=== PATIENT | female | born 1965 | race Caucasian/White ===

== ENCOUNTER 2020-12-26 00:54 | Observation (INO) ==
[2020-12-26] MEDS ORDERED: dilTIAZem HCl 5 MG/ML 5 ML VIAL IV STA ×2 (01:14→01:17)
[2020-12-26] MEDS ORDERED: dilTIAZem HCl 5 MG/ML 5 ML VIAL IV ONE (01:16)
--- NOTE | 2020-12-26 01:23 | Emergency Department Note ---
History of Present Illness General Chief complaint: Arrhythmia/Palpitations Stated complaint: IRREGULAR HEARTBEAT Time Seen by Provider: 12/26/20 01:09 Source: patient History of Present Illness Provider complaint: Palpitation Onset (ago): hour(s) Location: chest Pain Consistency: + constant Quality: + other (Rapid heartbeat) Relieved By: + none Associated symptoms: no chest pain, no cough, no fever/chills, no nausea/vomiting and no shortness of breath This is a 55-year-old female with a prior history of breast cancer presenting with palpitations starting approximately 1215 tonight. The patient states that she went to bed about 11 PM and woke up with her heart racing. She denies ever having this in the past. She has no associated chest discomfort or pain or shortness of breath or lightheadedness. She does state that she met with her old college friends and recently drank more than she usually had but no more etienne n 3 or 4 drinks. She did have half a beer today. She did drive from [facility] about 6 hours 3 days ago but denies any leg swelling or pain. She has had no history of PE or DVT. She did take stops when she was driving. She does have a history of hypothyroidism and takes thyroxine. She denies any fever, cough or cold symptoms, abdominal pain, vomiting, diarrhea or urinary symptoms. Home Medications Medication Instructions Recorded Confirmed Type thyroid (pork) [[place] Thyroid] 30 mg PO DAILY 12/26/20 12/26/20 History Allergies Allergy/AdvReac Type Severity Reaction Status Date / Time Iodinated Contrast Media Allergy Swelling Verified 12/26/20 01:57 of Lip/Tongue/Throat shellfish derived Allergy Swelling Verified 12/26/20 01:56 of Lip/Tongue/Throat Past Med/Surg History Medical History Breast cancer Hypothyroidism Social History Smoking Status: Never smoker Preferred Language: Wolof Feels Safe at Home: Yes Review of Systems See HPI for pertinent positives & negatives. and A total of 10 systems reviewed and were otherwise negative Physical Exam Vital Signs Vital Signs - 24 hr 12/26/20 00:58 12/26/20 01:13 12/26/20 01:34 Temperature 36.6 C Temperature Source Temporal Artery Scan Pulse Rate 116 H 100 H 109 H Pulse Rate from SpO2 Sensor 95 H 104 H Respiratory Rate 18 10 L 13 Respiratory Effort / Characteristics Non-Labored Respiratory Depth Normal Blood Pressure 134/84 135/107 H Blood Pressure Mean 100 116 Pulse Oximetry 98 99 99 Oxygen Delivery Method Room Air Sepsis Recent Fever Within 48 Hours No Sepsis New/Unexplained Change in Mental Status No Sepsis Action Taken by Nursing No Action Required 12/26/20 01:45 12/26/20 01:46 Temperature Temperature Source Pulse Rate 119 H 116 H Pulse Rate from SpO2 Sensor 107 H 112 H Respiratory Rate 20 21 Respiratory Effort / Characteristics Respiratory Depth Blood Pressure 118/90 Blood Pressure Mean 99 Pulse Oximetry 99 98 Oxygen Delivery Method Sepsis Recent Fever Within 48 Hours Sepsis New/Unexplained Change in Mental Status Sepsis Action Taken by Nursing Constitutional: Vital signs reviewed. Eyes: Pupils are equal round reactive to light. Conjunctiva are noninjected. ENT: Pharynx is clear without erythema or exudate. Mucous membranes are moist. Neck supple without meningeal signs. Respiratory: Clear to auscultation bilaterally. Breath sounds are equal bilaterally. Cardiovascular: Tachycardic. Irregularly irregular rhythm. Heart rate is 138. GI: Soft, nondistended and nontender. Bowel sounds are present. Musculoskeletal: No peripheral edema. No lower extremity tenderness. Integumentary: No cyanosis. or jaundice. Neurological: The patient is awake and alert. No focal deficits. Psychiatric: Anxious. Course Administered Medications Discontinued Medications Diltiazem HCl (Diltiazem Hcl 5 Mg/Ml 5 Ml Vial) 10 mg IV NOW STA Stop: 12/26/20 01:15 Last Admin: 12/26/20 01:18 Dose: 10 mg Documented by: [id number] Cosigned by: [id number] Diltiazem HCl (Diltiazem Hcl 5 Mg/Ml 5 Ml Vial) Confirm Administered Dose 25 mg IV .STK-MED ONE Stop: 12/26/20 01:17 Last Admin: 12/26/20 01:18 Dose: Not Given Documented by: [id number] Diltiazem HCl (Diltiazem Hcl 5 Mg/Ml 5 Ml Vial) 10 mg IV NOW STA Stop: 12/26/20 01:18 Last Admin: 12/26/20 01:23 Dose: Not Given Documented by: [id number] Medical Decision Making Differential Diagnosis Holiday heart, dysrhythmia, atrial fibrillation with RVR, SVT, metabolic derangement Medical Records Attestation: I reviewed the patient's medical records. I did perform a limited focused review of portions of the patient's old chart on the electronic medical record. The patient has had no prior pertinent visits to this hospital. Home Medications Current Medication List: was personally reviewed by me Laboratory Data Attestation: I reviewed the patient's lab results. Result diagrams: 12/26/20 01:11 12/26/20 01:11 Lab Results 12/26/20 12/26/20 12/26/20 Range/Units 01:11 01:11 01:11 WBC 6.79 (4.8-10.8) K/uL RBC 4.55 (4.2-5.4) M/uL Hgb 14.7 (12.0-16.0) g/dL Hct 43.4 (37-47) % MCV 95.4 (80-100) fL MCH 32.3 (25-34) pg MCHC 33.9 (32-36) g/dL RDW Std Deviation 47.8 H (36.4-46.3) fL RDW Coeff of Jewel 13.8 (11.5-14.5) % Plt Count 281 (130-400) K/uL MPV 10.2 (7.4-10.4) fL Immature Gran % (Auto) 0.1 % Neut % (Auto) 38.6 % Lymph % (Auto) 44.8 % Mcduffie % (Auto) 10.9 % Eos % (Auto) 4.9 % Baso % (Auto) 0.7 % Neut # (Auto) 2.62 (1.4-6.5) K/uL Lymph # (Auto) 3.04 (1.2-3.4) K/uL Mcduffie # (Auto) 0.74 H (0.11-0.59) K/uL Eos # (Auto) 0.33 (0-0.5) K/uL Baso # (Auto) 0.05 (0-0.2) K/uL Immature Gran # (Auto) 0.01 (0.00-0.02) K/uL PT (9.0-12.0) Seconds INR (0.9-1.1) APTT (21.0-31.0) Seconds PTT Ratio D-Dimer Cancelled Sodium 142 (136-145) mmol/L Potassium 3.7 (3.5-5.1) mmol/L Chloride 107 (98-107) mmol/L Carbon Dioxide 31 (21-32) mmol/L Anion Gap 4.0 (3-11) BUN 13 (7-18) mg/dl Creatinine 0.75 (0.6-1.2) mg/dl Est Cr Clr Drug Dosing 78.4 ml/min Est GFR ( Amer) 103.3 ml/min Est GFR (Non-Af Amer) 89.1 ml/min BUN/Creatinine Ratio 17.2 (10-20) Glucose 118 H (70-99) mg/dl Calcium 9.3 (8.5-10.1) mg/dl Magnesium 2.2 (1.8-2.4) mg/dl Total Bilirubin 0.4 (0.2-1) mg/dl AST 31 (15-37) U/L ALT 26 (12-78) U/L Alkaline Phosphatase 73 (45-117) U/L Troponin I < 0.015 (0-0.045) ng/ml Total Protein 7.6 (6.4-8.2) gm/dl Albumin 4.1 (3.4-5.0) gm/dl Globulin 3.5 (2.5-4.0) gm/dl Albumin/Globulin Ratio 1.2 (0.9-2) TSH 3.020 (0.300-4.500) uIu/ml COVID-19 Eval Order 12/26/20 12/26/20 Range/Units 01:11 01:40 WBC (4.8-10.8) K/uL RBC (4.2-5.4) M/uL Hgb (12.0-16.0) g/dL Hct (37-47) % MCV (80-100) fL MCH (25-34) pg MCHC (32-36) g/dL RDW Std Deviation (36.4-46.3) fL RDW Coeff of Jewel (11.5-14.5) % Plt Count (130-400) K/uL MPV (7.4-10.4) fL Immature Gran % (Auto) % Neut % (Auto) % Lymph % (Auto) % Mcduffie % (Auto) % Eos % (Auto) % Baso % (Auto) % Neut # (Auto) (1.4-6.5) K/uL Lymph # (Auto) (1.2-3.4) K/uL Mcduffie # (Auto) (0.11-0.59) K/uL Eos # (Auto) (0-0.5) K/uL Baso # (Auto) (0-0.2) K/uL Immature Gran # (Auto) (0.00-0.02) K/uL PT 9.7 (9.0-12.0) Seconds INR 1.0 (0.9-1.1) APTT 23.9 (21.0-31.0) Seconds PTT Ratio 0.9 D-Dimer 330 Sodium (136-145) mmol/L Potassium (3.5-5.1) mmol/L Chloride (98-107) mmol/L Carbon Dioxide (21-32) mmol/L Anion Gap (3-11) BUN (7-18) mg/dl Creatinine (0.6-1.2) mg/dl Est Cr Clr Drug Dosing ml/min Est GFR ( Amer) ml/min Est GFR (Non-Af Amer) ml/min BUN/Creatinine Ratio (10-20) Glucose (70-99) mg/dl Calcium (8.5-10.1) mg/dl Magnesium (1.8-2.4) mg/dl Total Bilirubin (0.2-1) mg/dl AST (15-37) U/L ALT (12-78) U/L Alkaline Phosphatase (45-117) U/L Troponin I (0-0.045) ng/ml Total Protein (6.4-8.2) gm/dl Albumin (3.4-5.0) gm/dl Globulin (2.5-4.0) gm/dl Albumin/Globulin Ratio (0.9-2) TSH (0.300-4.500) uIu/ml COVID-19 Eval Order Covid19 at [facility] Imaging Data Attestation: I personally reviewed and interpreted this imaging study as follows: My Impression: Chest x-ray per my interpretation shows no acute cardiopulmonary process. ECG Data Attestation: I personally reviewed and interpreted this ECG as follows: Indication: + tachycardia Rate (beats per minute): 129 Rhythm: + atrial fibrillation ECG [place]: + Normal ECG ST segments: + Nonspecific ST abnormalities ECG Findings: no PVCs Additional Comments: Repeat twelve-lead EKG per my interpretation after Cardizem administration shows atrial fibrillation with a heart rate of 103. There is no evidence of acute ST elevation or PVCs. MDM Narrative I did evaluate the patient as noted above. The patient is presenting with palpitations starting at 1215 today. IV access was established. I did place an order for continuous cardiac monitoring. The monitor showed atrial fibrillation with a heart rate of 140. I did order and personally review the patient's 12- lead EKG as described above. She has A. fib with RVR. I did treat the patient with Cardizem 10 mg IV. She was also given normal saline IV. Her heart rate came down into the 90s to 110. A repeat EKG was ordered which showed no evidence of acute ischemia. I did order and personally reviewed the images of the patient's chest x-ray as described above. There is no evidence of pneumonia. No heart failure. I did order a urine analysis. I did order and review the patient's blood work as noted in the electronic medical record. CBC is unremarkable without leukocytosis or anemia. Electrolytes are unremarkable. Troponin and TSH are unremarkable. D-dimer is negative. I did reassess the patient. Her heart rate is about 102. She is not having any symptoms at this time other than occasional palpitations. I did recommend hospitalization for further care and evaluation. I did discuss the case with the case resolution specialist and the hospitalist was informed. Impression & Plan Atrial fibrillation with rapid ventricular response, Atrial fibrillation, new onset Discharge Plan Visit Data Chief Complaint: Arrhythmia/Palpitations Stated Complaint: IRREGULAR HEARTBEAT ED Provider: Sebastien Man Discharge Problem: Atrial fibrillation with rapid ventricular response, Atrial fibrillation, new onset Patient Disposition: Being Evaluated by Hospitalist Forms Stand Alone Forms: My [employer] Prescriptions Prescriptions: No Action thyroid (pork) [[place] Thyroid] 30 mg Tablet 30 mg PO DAILY RF: 0 Referrals Referrals: ANNEL DUNAWAY [Other]
[2020-12-26 01:30] LABS: Basophils # (auto) 0.05 K/uL (0-0.2); Basophils % (auto) 0.7 %; Eosinophils # (auto) 0.33 K/uL (0-0.5); Eosinophils % (auto) 4.9 %; Hematocrit (blood only) 43.4 % (37-47); Hemoglobin 14.7 g/dL (12.0-16.0); Immature Granulocytes # (auto) 0.01 K/uL (0.00-0.02); Immature Granulocytes % (auto) 0.1 %; Lymphocytes # (auto) 3.04 K/uL (1.2-3.4); Lymphocytes % (auto) 44.8 %; Mean Corpuscular Hemoglobin 32.3 pg (25-34); Mean Corpuscular Hgb Conc 33.9 g/dL (32-36); Mean Corpuscular Volume 95.4 fL (80-100); Mean Platelet Volume 10.2 fL (7.4-10.4); Monocytes # (auto) 0.74 K/uL (0.11-0.59); Monocytes % (auto) 10.9 %; Neutrophils # (auto) 2.62 K/uL (1.4-6.5); Neutrophils % (auto) 38.6 %; Platelet Count 281 K/uL (130-400); RDW Coefficient of Variation 13.8 % (11.5-14.5); RDW Standard Deviation 47.8 fL (36.4-46.3); Red Blood Count 4.55 M/uL (4.2-5.4); White Blood Count 6.79 K/uL (4.8-10.8)
[2020-12-26 01:50] LABS: Alanine Aminotransferase 26 U/L (12-78); Albumin Level 4.1 gm/dl (3.4-5.0); Aspartate Aminotransferase 31 U/L (15-37); BUN Creatinine Ratio 17.2 (10-20); Blood Urea Nitrogen 13 mg/dl (7-18); Calcium 9.3 mg/dl (8.5-10.1); Carbon Dioxide 31 mmol/L (21-32); Chloride 107 mmol/L (98-107); Creatinine Clr Calc Pharmacy 78.4 ml/min; Est GFR (African American) 103.3 ml/min; Est GFR (Non-African American) 89.1 ml/min; Glucose 118 mg/dl (70-99); Magnesium 2.2 mg/dl (1.8-2.4); Potassium 3.7 mmol/L (3.5-5.1); Sodium 142 mmol/L (136-145)
[2020-12-26 01:59] LABS: D Dimer 330 ug/L FEU (0-500); Partial Thromboplastin Ratio 0.9; Partial Thromboplastin Time 23.9 Seconds (21.0-31.0); Prothrombin Time 9.7 Seconds (9.0-12.0)
[2020-12-26 02:01] LABS: Albumin Globulin Ratio 1.2 (0.9-2); Alkaline Phosphatase 73 U/L (45-117); Bilirubin,Total 0.4 mg/dl (0.2-1); Globulin 3.5 gm/dl (2.5-4.0); Total Protein 7.6 gm/dl (6.4-8.2); Troponin I < 0.015 ng/ml (0-0.045)
[2020-12-26] MEDS ORDERED: METOPROLOL SUCC 25MG EXT REL TAB PO STA (03:19)
[2020-12-26] MEDS ORDERED: SODIUM CHLORIDE 0.9% 1000ML 1,000 ML IV ONE (03:39)
[2020-12-26] MEDS ORDERED: POTASSIUM CHLORIDE CRTAB 20 MEQ TABCR PO STA (03:39)
[2020-12-26] MEDS ORDERED: ASPIRIN CHEW 324 MG PO STA (03:39)
--- NOTE | 2020-12-26 03:42 | Emergency Department Note ---
ED Visit Note ED Physician Sign Out Note: 55 yr old female with history hypothyroidism and familial history Afib & Hypothyroid arrives for palpitations. Initially seen by Dr Man and diagnosed with Afib RVR. She was given 10mg IV Diltiazem with improvement in HR though still afib thus hospitalist consulted. Hospitalist contacted me and asked that I monitor patient in ED for next few hours, give ASA 81mg PO, KlorCon 40meq PO, and Metoprolol PO and see if she converts. Monitored and HR noted to start climbing over the next 2 hours. Given IV lopressor 5mg. HR improved to 90s-110 but remains in Afib. She is still symptomatic, has now had several rounds meds though remains afib RVR. Hospitalization indicated and she is agreeable to staying in hospital at this time. Dr Olivares re-consulted for further management. Jd Benedict MD
[2020-12-26] MEDS ORDERED: METOPROLOL TARTRATE 1 MG/ML VIAL IV STA (05:11)
--- NOTE | 2020-12-26 05:53 | History & Physical Report ---
Date of Service December 26, 2020 Assessment & Plan (1) Atrial fibrillation with rapid ventricular response: Mrs. Chiang is a 55 yo woman who presents to the [place] ED with new onset A-fib with RVR who failed to convert to sinus rhythm with multiple medication trials. - etiology of A-fib is uncertain: patient is not obese, no history of CHRISTOPHE or HTN; TSH was normal; + history of both chemotherapy (specific agents unknown) and radiation to the chest. She does consume alcohol. - I will order an echo to assess for structural heart disease (cardiomyopathy) - it is also possible patient has alcohol induced A-fib in the absence of structural heart disease ('holiday heart'), in which case etoh redu ction/avoidance would be advisable - Metoprolol tartrate 25mg BID ordered for rate control - Mag is > 2.0; K was supplemented in ED; repeat BMP at noon (goal K >4) - [id number] score of 1 - low risk for stroke due to paroxysmal Afib. HAS BLED of 1. Would favor daily baby ASA over anticoagulation at this time. - cardiology consult placed for rhythm vs. rate control options (2) Hypothyroidism: - continue home dose armour thyroid History of Present Illness Primary Care Provider: ANNEL DUNAWAY Mrs. Chiang is a 55 yo woman with a PMHx of breast cancer (status post mastectomy, chemotherapy and radiation) and hypothyroidism (on [place] thyroid) who presented for evaluation of a rapid heart rate. She went to bed at 11pm and awoke at 12:30am with a racing heart. She denies any associated chest pain, shortness of breath or lightheadedness. She says she has experienced similar events in the past - however very briefly (lasting only seconds in duration). After eliminating caffeine from her diet, these sensations seemed to not recur. This episode was unusual in that it has lasted for hours. She does report having an echocardiogram at some point in the past 5 years - she was told everything was normal. She did consume 3 drinks of etoh on Friday (perhaps slightly more than she would normally) - she also had a half of beer on Friday afternoon. She has no personal history of PE or DVT. Social Hx: She lives in [place], [place]. She was in [facility] this past weekend visiting college friends - on her way back to [place] she stopped to stay with another friend in [employer]. She is an non-smoker. She drinks alcohol occasionally - moreso in the summer months - 1-2 glasses of wine on several days of the week. No illicit substance use. Family Hx: sister has Afib - was considering an ablation procedure but is well c ontrolled on an oral anti-arrhythmic In the ED her HR was 116 bpm, afebrile with normal BP. Her CBC was normal, Coags normal, CMP normal (Mag was 2.2, K was 3.7). Trop was undetectable. TSH was 3. D -dimer was not elevated. CXR was normal. EKG showed A-fib with RVR. She was given 2 doses of IV Cardizem 10mg. She was given 2 liters of IVF. Her K was supplemented and she was given a baby aspirin. She was later given Metoprolol Tartrate 12.5mg oral - followed by a 5mg IV dose. Despite some improvement in heart rate - she remained in Afib. Allergies Allergy/AdvReac Type Severity Reaction Status Date / Time Iodinated Contrast Media Allergy Swelling Verified 12/26/20 01:57 of Lip/Tongue/Throat shellfish derived Allergy Swelling Verified 12/26/20 01:56 of Lip/Tongue/Throat Home Medications Medication Instructions Recorded Confirmed Type diltiazem HCl 180 mg PO DAILY #30 cap 12/26/20 Rx thyroid (pork) [[place] Thyroid] 30 mg PO DAILY 12/26/20 12/26/20 History Past Med/Surg History Medical History Breast cancer Hypothyroidism Social History Smoking Status: Never smoker Second Hand Exposure: No; Hx Alcohol Use: No Hx Substance Use: No Preferred Language: Danish Communication Ability: Effective Auto Inspection Specialist Required: No Beliefs That Will Affect Care: None Current Living Situation: Family Feels Safe at Home: Yes Review of Systems Review of Systems: All systems reviewed & are unremarkable except as noted in HPI & below Physical Exam Constitutional: WD/WN, vitals as above cooperative; no acute distress Eyes: + anicteric sclerae ENMT: external ear and nose normal, oropharynx normal Neck: normal visual inspection and trachea midline Respiratory: normal respiratory effort, lungs clear to auscultation Cardiovascular: Rate/Rhythm: + tachycardic and + irregularly irregular Heart Sounds: normal S1 and normal S2; no murmur Vessels: normal carotid upstroke; no carotid bruit Extremities: no pedal edema Gastrointestinal (Abdomen): normal bowel sounds, soft, nontender, no hepatosplenomegaly Skin: no rashes, warm and dry Psychiatric: A+Ox3, euthymic affect Results & Data Results & Data ([facility]) Vital Signs (Past 12 Hours) Vital Signs Temp Pulse Resp BP Pulse Ox 12/26/20 05:30 103 H 14 98 12/26/20 05:24 120 H 12/26/20 05:15 118 H 14 96 12/26/20 05:00 114 H 10 L 97 12/26/20 04:45 110 H 13 99 12/26/20 04:30 118 H 14 97 12/26/20 04:15 113 H 13 99 12/26/20 04:04 119 H 13 98 12/26/20 04:03 126 H 22 120/86 98 12/26/20 04:00 139 H 22 99 12/26/20 03:45 132 H 14 98 12/26/20 03:30 121 H 17 97 12/26/20 03:15 122 H 18 98 12/26/20 03:00 131 H 16 99 12/26/20 02:45 107 H 18 98 12/26/20 02:32 120 H 15 97 12/26/20 02:15 120 H 15 97 12/26/20 02:00 120 H 15 99 12/26/20 01:47 104 H 13 100 12/26/20 01:46 116 H 21 118/90 98 12/26/20 01:45 119 H 20 99 12/26/20 01:34 109 H 13 99 12/26/20 01:13 100 H 10 L 135/107 H 99 12/26/20 00:58 36.6 C 116 H 18 134/84 98 Supervising Physician Co-Signing Physician Notes Attending addendum: I have physically seen this patient, have supervised the medical residents activities, and agree with the H&P unless as otherwise noted. Assessment and Plan: Atrial fibrillation with rapid ventricular response- The patient will be admitted to telemetry for serial cardiac enzymes, serial EKG's, cardiac rhythm monitoring and a 2-D echocardiogram with Dopplers. Patient is advised to avoid alcohol, as may have a predisposition toward holiday heart Potassium goal is 4, magnesium goal is 2 Metoprolol tartrate orally standing dose, with as needed IV Lopressor for rate control Consult cardiology Remaining orders and notations as noted Resident Activity Tracking Resident Involvement: Resident Care Provided Care Provided: Adult Hospital Medicine
--- NOTE | 2020-12-26 06:42 | XRay Report ---
XR chest 1V portable CLINICAL HISTORY: Dysrhythmia COMPARISON STUDY: No previous studies for comparison. FINDINGS: Lung volumes are normal. Lungs are clear. There is no pneumothorax or pleural effusion. Car diac size is normal. Mediastinal contours are normal. There is no evidence for pulmonary edema. Posto perative findings within the left chest wall are noted. IMPRESSION: No acute cardiopulmonary findings. ACT 112: Negative or not required by law. Electronically signed by: Jonel Farah M.D. 12/26/2020 6:40 AM
[2020-12-26] MEDS ORDERED: ONDANSETRON INJ 2 MG/ML 2 ML VIAL IV PRN (07:28)
[2020-12-26] MEDS ORDERED: METOPROLOL TARTRATE 1 MG/ML VIAL IV PRN (07:28)
[2020-12-26] MEDS ORDERED: ACETAMINOPHEN 325 MG TAB PO PRN (07:28)
[2020-12-26] MEDS ORDERED: ARMOUR THYROID 30 MG TAB PO SCH (08:00)
--- NOTE | 2020-12-26 08:26 | Hospitalist Progress Note ---
Date of Service December 26, 2020 Assessment & Plan (1) Atrial fibrillation with rapid ventricular response: Mrs. Chiang is a 55 yo woman who presents to the [place] ED with new onset A-fib with RVR who failed to convert to sinus rhythm with multiple medication trials. - etiology of A-fib is uncertain: patient is not obese, no history of CHRISTOPHE or HTN; TSH was normal; + history of both chemotherapy (specific agents unknown) and radiation to the chest. She does consume alcohol. - I will order an echo to assess for structural heart disease (cardiomyopathy) - it is also possible patient has alcohol induced A-fib in the absence of structural heart disease ('holiday heart'), in which case etoh reduc tion/avoidance would be advisable - Metoprolol tartrate 25mg BID ordered for rate control - Mag is > 2.0; K was supplemented in ED; repeat BMP at noon (goal K >4) - [id number] score of 1 - low risk for stroke due to paroxysmal Afib. HAS BLED of 1. Would favor daily baby ASA over anticoagulation at this time. - cardiology consult placed for rhythm vs. rate control options (2) Hypothyroidism: - continue home dose armour thyroid Admission and Anticipated Discharge Date Admission Date: December 26, 2020 Subjective BRIDGE NOTE: ADMITTED AFTER MIDNIGHT Results & Data Results & Data ([facility]) Vital Signs (Past 12 Hours) Vital Signs Temp Pulse Pulse Resp BP BP Pulse Ox 12/26/20 07:34 36.7 C 82 20 123/81 96 12/26/20 06:15 105 H 22 118/84 96 12/26/20 06:00 111 H 16 97 12/26/20 05:45 111 H 14 97 12/26/20 05:30 103 H 14 98 12/26/20 05:24 120 H 12/26/20 05:15 118 H 14 96 12/26/20 05:00 114 H 10 L 97 12/26/20 04:45 110 H 13 99 12/26/20 04:30 118 H 14 97 12/26/20 04:15 113 H 13 99 12/26/20 04:04 119 H 13 98 12/26/20 04:03 126 H 22 120/86 98 12/26/20 04:00 139 H 22 99 12/26/20 03:45 132 H 14 98 12/26/20 03:30 121 H 17 97 12/26/20 03:15 122 H 18 98 12/26/20 03:00 131 H 16 99 12/26/20 02:45 107 H 18 98 12/26/20 02:32 120 H 15 97 12/26/20 02:15 120 H 15 97 12/26/20 02:00 120 H 15 99 12/26/20 01:47 104 H 13 100 12/26/20 01:46 116 H 21 118/90 98 12/26/20 01:45 119 H 20 99 12/26/20 01:34 109 H 13 99 12/26/20 01:13 100 H 10 L 135/107 H 99 12/26/20 00:58 36.6 C 116 H 18 134/84 98 PG Care Time/CCT Total # of Minutes Spent Total Time Spent with Patient: Total time spent is greater than 50% in coordination of care (as documented) at patient's floor/unit and/or counseling patient: Coding Diagnoses Atrial fibrillation with rapid ventricular response I48.91 Hypothyroidism E03.9
--- NOTE | 2020-12-26 08:34 | Cardiology Consultation ---
Date of Consultation December 26, 2020 Assessment & Plan (1) Atrial fibrillation with rapid ventricular response: She has probably had brief episodes of atrial fibrillation in the past although I believe it has not been documented, that is based on her symptomatology. Certainly she has not experienced anything to this extent in the past. There may have been some precipitating event although I think it is equally likely that this just represents the natural progression of the disease. She has a very healthy lifestyle, she may have had several drinks a day before this started but that is not likely to have triggered this event in my estimation. I did not recommend that she change her lifestyle to any significant extent based on this. With her low [id number] score she probably should not be on an anticoagulant, I would not use aspirin. Additionally with the brief nature of this that would argue against an anticoagulant as well. I did tell her that may well change in the future if she has more episodes and she does need to follow-up with a traffic controller cable when she gets back to [place]. I do not see any reason for any further testing, I would put her on rate controlling medications (although we may get in trouble with low blood pressure) and I would recommend diltiazem CD 180 mg daily as a start. It would probably be safest for her not to start this until she gets back to [place] since she is going to be driving home probably tomorrow. If she stays in the area that she could start it here. History of Present Illness Attending Physician: Sebastien Barraza MD History of Present Illness This is a 55-year-old woman with a history of breast cancer (history of mastectomy, chemotherapy and radiation about 14 years ago) who presented with palpitations starting at around midnight. She went to bed at around 11 PM and then woke up at about 1215 with her heart racing. She has never had this before. She does have a history of hypothyroidism and is on medications. And has a normal TSH. She is from out of town, she does drink some alcohol and had 2 or 3 drinks the day before this occurred but not the day it did occur, only half of a beer. In the emergency room she received intravenous diltiazem. Presenting electrocardiogram at 1:07 AM this morning shows atrial fibrillation with a heart rate of 130 bpm, a repeat electrocardiogram this morning at 1:44 AM shows atrial fibrillation with a heart rate of 103 bpm. While off of the monitor this morning she converted to sinus rhythm, she was put on the monitor just a few minutes ago and was in sinus rhythm. She was quite aware of going into atrial fibrillation and on review of her history with her she has had brief episodes of palpitations going back at least 5 years, generally they were brief and perhaps somewhat different than what she is experiencing on this occasion. She thought they lasted 30 seconds to a minute at the most in the past, she had an echo about 5 years ago because of the symptoms and was told it was normal and she stopped caffeine and feels that the pretty much resolved until now. With initial treatment and reduction in her heart rate prior to conversion she felt better but was still aware of the arrhythmia. She is confident that she has never had sustained episodes before. With conversion now back to sinus rhythm (which she was very aware of) she feels normal. She has had no chest discomfort, no exertional symptoms and no change in her exercise ability recently. Allergies Allergy/AdvReac Type Severity Reaction Status Date / Time Iodinated Contrast Media Allergy Swelling Verified 12/26/20 01:57 of Lip/Tongue/Throat shellfish derived Allergy Swelling Verified 12/26/20 01:56 of Lip/Tongue/Throat Home Medications Medication Instructions Recorded Confirmed Type thyroid (pork) [[place] Thyroid] 30 mg PO DAILY 12/26/20 12/26/20 History Patient History Medical History Breast cancer Hypothyroidism Social History Smoking Status: Never smoker Preferred Language: Italian Feels Safe at Home: Yes Review of Systems Review of Systems: All systems reviewed & are unremarkable except as noted in HPI & below Physical Exam Physical Exam: Constitutional: Alert, cooperative and in no distress. HEENT: Unremarkable Neck: No jugular venous distention, carotid pulses are normal and equal bilaterally without bruits. Pulmonary: Clear to auscultation bilaterally. Cardiac: Regular rhythm with no murmur, gallop or rub. Abdomen: Soft, nontender with normal bowel sounds. Extremities: No edema. Distal pulses intact. Neurologic: No focal findings. Gait is steady. Skin: No rash, ecchymoses or petechiae. Results & Data ([facility]) Vital Signs (Past 12 Hours) Vital Signs Temp Pulse Pulse Resp BP BP Pulse Ox 12/26/20 07:34 36.7 C 82 20 123/81 96 12/26/20 06:15 105 H 22 118/84 96 12/26/20 06:00 111 H 16 97 12/26/20 05:45 111 H 14 97 12/26/20 05:30 103 H 14 98 12/26/20 05:24 120 H 12/26/20 05:15 118 H 14 96 12/26/20 05:00 114 H 10 L 97 12/26/20 04:45 110 H 13 99 12/26/20 04:30 118 H 14 97 12/26/20 04:15 113 H 13 99 12/26/20 04:04 119 H 13 98 12/26/20 04:03 126 H 22 120/86 98 12/26/20 04:00 139 H 22 99 12/26/20 03:45 132 H 14 98 12/26/20 03:30 121 H 17 97 12/26/20 03:15 122 H 18 98 12/26/20 03:00 131 H 16 99 12/26/20 02:45 107 H 18 98 12/26/20 02:32 120 H 15 97 12/26/20 02:15 120 H 15 97 12/26/20 02:00 120 H 15 99 12/26/20 01:47 104 H 13 100 12/26/20 01:46 116 H 21 118/90 98 12/26/20 01:45 119 H 20 99 12/26/20 01:34 109 H 13 99 12/26/20 01:13 100 H 10 L 135/107 H 99 12/26/20 00:58 36.6 C 116 H 18 134/84 98 Laboratory Results Cardiac Enzymes 12/26/20 Range/Units 01:11 AST 31 (15-37) U/L Troponin I < 0.015 (0-0.045) ng/ml Coagulation 12/26/20 Range/Units 01:11 PT 9.7 (9.0-12.0) Seconds APTT 23.9 (21.0-31.0) Seconds CBC 12/26/20 Range/Units 01:11 WBC 6.79 (4.8-10.8) K/uL RBC 4.55 (4.2-5.4) M/uL Hgb 14.7 (12.0-16.0) g/dL Hct 43.4 (37-47) % Plt Count 281 (130-400) K/uL Neut # (Auto) 2.62 (1.4-6.5) K/uL Lymph # (Auto) 3.04 (1.2-3.4) K/uL Cataño # (Auto) 0.74 H (0.11-0.59) K/uL Eos # (Auto) 0.33 (0-0.5) K/uL Baso # (Auto) 0.05 (0-0.2) K/uL Comprehensive Metabolic Panel 12/26/20 Range/Units 01:11 Sodium 142 (136-145) mmol/L Potassium 3.7 (3.5-5.1) mmol/L Chloride 107 (98-107) mmol/L Carbon Dioxide 31 (21-32) mmol/L BUN 13 (7-18) mg/dl Creatinine 0.75 (0.6-1.2) mg/dl Glucose 118 H (70-99) mg/dl Calcium 9.3 (8.5-10.1) mg/dl AST 31 (15-37) U/L ALT 26 (12-78) U/L Alkaline Phosphatase 73 (45-117) U/L Total Protein 7.6 (6.4-8.2) gm/dl Albumin 4.1 (3.4-5.0) gm/dl Intake and Output 12/25/20 12/26/20 12/26/20 22:59 06:59 14:59 Intake Total 1000 / 1000 Balance 1000 / 1000 Intake: IV 1000 / 1000 Sodium Chloride 0.9% 1000ML 1, 1000 / 1000 000 ml @ 999 mls/hr IV .Q1H1M ONE Rx#:[id number] Other: Weight 68 kg Weight Measurement Method Chair Scale Diagnostic Findings Telemetry: Atrial fibrillation with a rapid heart rate, conversion to sinus rhythm sometime when she was off the monitor this morning. PG Care Time/CCT Total # of Minutes Spent Total Time Spent with Patient: Total time spent is greater than 50% in coordination of care (as documented) at patient's floor/unit and/or counseling patient: Coding Level of Care Code 52875 Inpt Consult Level 4 Diagnoses Atrial fibrillation with rapid ventricular response I48.91
[2020-12-26] MEDS ORDERED: METOPROLOL TARTRATE 25 MG TAB PO SCH (09:00)
[2020-12-26] MEDS ORDERED: dilTIAZem ER 180 MG CAPCR PO SCH (09:45)
--- NOTE | 2020-12-26 12:40 | XCELERA ---
[id number]
--- NOTE | 2020-12-26 13:44 | Discharge Summary ---
Date of Service December 26, 2020 Admission HPI Per Admitting Provider Mrs. Chiang is a 55 yo woman with a PMHx of breast cancer (status post mastectomy, chemotherapy and radiation) and hypothyroidism (on [place] thyroid) who presented for evaluation of a rapid heart rate. She went to bed at 11pm and awoke at 12:30am with a racing heart. She denies any associated chest pain, shortness of breath or lightheadedness. She says she has experienced similar events in the past - however very briefly (lasting only seconds in duration). After eliminating caffeine from her diet, these sensations seemed to not recur. This episode was unusual in that it has lasted for hours. She does report having an echocardiogram at some point in the past 5 years - she was told everything was normal. She did consume 3 drinks of etoh on Friday (perhaps slightly more than she would normally) - she also had a half of beer on Friday afternoon. She has no personal history of PE or DVT. Social Hx: She lives in [place], [place]. She was in [facility] this past weekend visiting college friends - on her way back to [place] she stopped to stay with another friend in [place]. She is an non-smoker. She drinks alcohol occasionally - moreso in the summer months - 1-2 glasses of wine on several days of the week. No illicit substance use. Family Hx: sister has Afib - was considering an ablation procedure but is well controlled on an oral anti-arrhythmic In the ED her HR was 116 bpm, afebrile with normal BP. Her CBC was normal, Coags normal, CMP normal (Mag was 2.2, K was 3.7). Trop was undetectable. TSH was 3. D-dimer was not elevated. CXR was normal. EKG showed A-fib with RVR. She was given 2 doses of IV Cardizem 10mg. She was given 2 liters of IVF. Her K was supplemented and she was given a baby aspirin. She was later given Metoprolol Tartrate 12.5mg oral - followed by a 5mg IV dose. Despite some improvement in heart rate - she remained in Afib. Admission Exam Per Admitting Provider Constitutional: WD/WN, vitals as above cooperative; no acute distress Eyes: + anicteric sclerae ENMT: external ear and nose normal, oropharynx normal Neck: normal visual inspection and trachea midline Respiratory: normal respiratory effort, lungs clear to auscultation Cardiovascular: Rate/Rhythm: + tachycardic and + irregularly irregular Heart Sounds: normal S1 and normal S2; no murmur Vessels: normal carotid upstroke; no carotid bruit Extremities: no pedal edema Gastrointestinal (Abdomen): normal bowel sounds, soft, nontender, no hepatosplenomegaly Skin: no rashes, warm and dry Psychiatric: A+Ox3, euthymic affect Principal Diagnosis Afib with RVR Discharge Exam Constitutional WD/WN, vitals as above cooperative; no acute distress Eyes + anicteric sclerae ENMT external ear and nose normal, oropharynx normal Neck normal visual inspection and trachea midline Respiratory normal respiratory effort, lungs clear to auscultation Cardiovascular Rate/Rhythm: regular rate and regular rhythm Heart Sounds: normal S1 and normal S2; no murmur Vessels: normal carotid upstroke; no carotid bruit Extremities: no pedal edema Gastrointestinal (Abdomen) normal bowel sounds, soft, nontender, no hepatosplenomegaly Musculoskeletal no cyanosis or clubbing, extremities motor strength 5/5 Skin no rashes, warm and dry Neurologic PERRL, EOMI, accommodation nl, no face palsy, no dysarthria Psychiatric A+Ox3, euthymic affect Lymphatic no cervical or axillary lymphadenopathy Discharge Data Allergies Allergy/AdvReac Type Severity Reaction Status Date / Time Iodinated Contrast Media Allergy Swelling Verified 12/26/20 01:57 of Lip/Tongue/Throat shellfish derived Allergy Swelling Verified 12/26/20 01:56 of Lip/Tongue/Throat Consultations 12/26/20 02:16 ED Decision to Admit Stat 12/26/20 07:28 Consult Cardiology Routine Hospital Course (1) Atrial fibrillation with rapid ventricular response: Mrs. Chiang is a 55 yo woman who [place] the [place] with new onset A-fib with RVR TSH wnl Got 2 doses of Cardizem with significant improvement of HR. Also got 12.5mg dose of metoprolol and Lopressor 5mg IV. Converted to NSR en route from ER to telemetry ECHO without wma or significant valvular pathology -- LV systolic function normal, mild MR Cardiology consulted Trop negative x 3 Discussed with cardiology, CHADsVASc2 score of 1, not rec for anticoagulation at this time. --> Sent on Cardizem 180mg daily (to start on as she is traveling back to [place] tomorrow and got multiple doses in the ER and would avoid hypotension) She is to follow up with PCP and Cardiology once back in [place], or return to the emergency department for any recurrence of symptoms. (2) Hypothyroidism: continued home dose armour thyroid 30mg daily Total Time Total Time Spent Total Time Spent (In Minutes): 60 Discharge Plan Discharge Items Patient Disposition: Home - Self-Care Reason For Visit: ATRIAL FIBRILLATION Discharge Diagnosis: Afib with RVR Goals: You have been hospitalized for an acute medical problem. During your stay at [facility], we have made an effort to correct the problem that brought you to the hospital while keeping you as comfortable as possible. Medications were used to bring your condition under control and your discharge instructions will include directions for any medications you should take after leaving the hospital. Please make sure you see your Primary Care Provider as part of your follow up plan. Activity: Resume your previous activity Non-emergency contact: Primary Care Provider Call non-emergency contact if: you have any medication questions, your symptoms worsen and your pain is concerning for you Follow-up/Referrals: ANNEL TINSLEY [Other] Diet: Heart Healthy Add Attending Provider Instructions: You have been hospitalized and found to have an irregularly irregular heart rhythm called atrial fibrillation. You were treated with medications and cardiology was consulted. You will be sent on Diltiazem 180mg daily to help keep your heart in a regular rhythm. You were given multiple doses in the emergency department and per cardiology, you should start this medication on THURSDAY 12/28. Your risk score as calculated to determine if you need anticoagulation was not at a level where it is recommended to start anticoagulation at this time and a rate/rhythm control method has been employed. You had an ultrasound of your heart which did not show any significant valvular abnormalities. You should follow up with your PCP in the next 1-2 weeks to monitor your progress. You should report to the nearest emergency department with any repeat symptoms, chest pain, shortness of breath, or for any other symptoms that are concerning for you. It has been a pleasure being a part of the medical team providing for you during your hospitalization. Take care! Pending Studies at Discharge: No Stand-Alone Forms: My [facility] Medications and DC Order Prescriptions: New diltiazem HCl 180 mg capsule,extended release 24hr 180 mg PO DAILY Qty: 30 RF: 0 Continued thyroid (pork) [[place] Thyroid] 30 mg Tablet 30 mg PO DAILY RF: 0 Discharge Orders: Discharge Order (Routine); Ordered 12/26/20 Ordered By: Chantal Fairbanks Admission Data Admit Date/Time: 12/26/20 05:42 Attending Provider: Sebastien Barraza Admit Provider: Leticia García Primary Care Provider: Annel Tinsley Other Providers: Chacho Olivares Anthony F. Other Interventions: Discharge Summary Assessment (RN) Last Done: 12/26/20 13:22 Coding Level of Care Code D/C Day Management >30 mins Diagnoses Atrial fibrillation with rapid ventricular response I48.91 Hypothyroidism E03.9
--- NOTE | 2020-12-27 04:35 | Billing Data ---
Date of Service December 27, 2020 Coding Level of Care Code 90723 Initial Inpt Care Lvl 2
--- NOTE | 2020-12-27 12:45 | Electrocardiogram Report ---
Test Reason : Blood Pressure : / mmHG Vent. Rate : 129 BPM Atrial Rate : 102 BPM P-R Int : 000 ms QRS Dur : 082 ms QT Int : 280 ms P-R-T Axes : 000 047 052 degrees QTc Int : 410 ms Atrial fibrillation with rapid ventricular response Nonspecific ST abnormality Abnormal ECG No previous ECGs available Confirmed by Diogo Kumar ([id number]) on 12/27/2020 12:44:53 PM Referred By: REFERRED SELF Confirmed By:Diogo Kumar
--- NOTE | 2020-12-27 12:46 | Electrocardiogram Report ---
Test Reason : Blood Pressure : / mmHG Vent. Rate : 103 BPM Atrial Rate : 113 BPM P-R Int : 000 ms QRS Dur : 084 ms QT Int : 320 ms P-R-T Axes : 000 052 037 degrees QTc Int : 419 ms Atrial fibrillation with rapid ventricular response Abnormal ECG When compared with ECG of 26-DEC-2020 01:07, (unconfirmed) No significant change was found Confirmed by Diogo Kumar ([id number]) on 12/27/2020 12:45:43 PM Referred By: REFERRED SELF Confirmed By:Diogo Kumar
--- NOTE | 2020-12-28 08:55 | Electrocardiogram Report ---
Test Reason : Blood Pressure : / mmHG Vent. Rate : 086 BPM Atrial Rate : 086 BPM P-R Int : 186 ms QRS Dur : 082 ms QT Int : 390 ms P-R-T Axes : 062 059 076 degrees QTc Int : 466 ms Sinus rhythm with occasional Premature ventricular complexes Otherwise normal ECG When compared with ECG of 26-DEC-2020 01:44, (unconfirmed) Sinus rhythm has replaced Atrial fibrillation Premature ventricular complexes are now Present Confirmed by Diogo Kumar ([id number]) on 12/28/2020 8:54:44 AM Referred By: REFERRED SELF Confirmed By:Diogo Kumar
== END 2020-12-26 13:53 | disposition home or self-care (01) | DRG 310 ==
LOC: ED 00:54 → INTOOBSV 05:42 → 2N 05:42 → SUATTDRO 05:42 → 2N 06:42